=== PATIENT | female | born 1995 | race Caucasian/White ===

== ENCOUNTER → 2021-11-06 | Outpatient (CLI) | payer OTHER ==
[~2021-11-06] MED LIST: NORCO 325 MG-51 TAB PO; PREDNISONE20 MG PO
== END ==
LOC: COL.RAD 14:35
DX: K11.6 Mucocele of salivary gland (principal)
CPT/HCPCS: Q9967

== ENCOUNTER 2021-11-12 00:14 | Emergency (ER) | payer OTHER ==
[~2021-11-12] VITALS: Ht 182.9 cm; Wt 88.6 kg
[2021-11-12 00:30] VITALS: TEMP 97.8
[2021-11-12 01:19] LABS: BASO # 0.1 K/mm3 (0.0-0.2); BASO % 0.8 % (0.0-2.0); EOS # 0.4 K/mm3 (0.0-0.7); EOS % 3.1 % (0.0-4.0); GRAN # 6.9 K/mm3 (1.4-6.5); GRAN % 58.1 % (42.2-75.2); HEMATOCRIT 40.9 % (37.0-47.0); HEMOGLOBIN 13.8 g/dl (12.5-16.0); LYMPH # 3.1 K/mm3 (1.2-3.4); LYMPH % 25.6 % (20.0-51.0); MEAN CELL VOLUME 90 fl (80.0-100.0); MEAN CORPUSCULAR HEMOGLOBIN 30 pg (27-31); MEAN CORPUSCULAR HGB CONC 34 g/dl (33.0-37.0); MEAN PLATELET VOLUME 10.5 fl (7.4-10.4); MONO # 1.5 K/mm3 (0.1-0.6); MONO % 12.2 % (1.7-9.3); PLATELET COUNT 249 K/mm3 (130-400); RED BLOOD COUNT 4.56 M/mm3 (4.10-5.30); REDCELL DISTRIBUTION WIDTH-CV 12.2 % (11.5-14.5)
[2021-11-12 01:27] LABS: CALCIUM 9.4 mg/dL (8.4-10.2); CREATININE, serum 0.86 mg/dL (0.57-1.11); POTASSIUM 4.3 mmol/L (3.5-4.5)
[2021-11-12] MEDS ORDERED: NORCO 325 MG-51 TAB PO (04:39)
[2021-11-12] MEDS ORDERED: PREDNISONE20 MG PO (04:39)
[2021-11-12 04:40] VITALS: BP 144/110; PULSE 87
== END 2021-11-12 04:50 | disposition home or self-care (01) ==
LOC: COL.ER 00:14
PROVIDERS: Emergency Medicine
DX: Q18.0 Sinus, fistula and cyst of branchial cleft (principal)
CPT/HCPCS: J1885; J2270; J7512; Q9967